=== PATIENT | female | born 1955 | race Two or more races ===

== ENCOUNTER → 2025-08-05 | Emergency (ER) | payer OTHER ==
[~2025-08-05] VITALS: Ht 157.5 cm; Wt 55.3 kg
[~2025-08-05] MED LIST: SYMBICORT 80/10.2 GM IH
[2025-08-05 09:41] LABS: BASO % 0.9 % (0.1-1.2); EOS # 0.23 (0.04-0.54); EOS % 4.4 % (0.7-7.0); LYMPH # 1.69 (1.18-3.74); LYMPH % 32.1 % (19.3-53.1); MEAN PLATELET VOLUME 9.80 fl (9.4-12.4); MONO # 0.33 (0.24-0.82); MONO % 6.3 % (4.7-12.5); NEUT # 2.95 (1.56-6.13); NEUT % 55.9 % (34.0-71.1); RED CELL DISTRIBUTION WIDTH 11.9 % (11.6-14.4)
[2025-08-05 10:22] LABS: URINE APPEARANCE Clear; URINE BILIRRUBIN Negative (NEGATIVE); URINE BLOOD Negative; URINE COLOR Yellow; URINE GLUCOSE Negative (NEGATIVE); URINE KETONE Negative (NEGATIVE); URINE LEUKOCYTE Negative; URINE NITRATE Negative; URINE PROTEIN Negative (NEGATIVE); URINE UROBILINOGEN 0.2 E.U./dl
[2025-08-05 10:25] LABS: ALT/SGPT 72.0 U/L (12-78); AST/SGOT 44.0 U/L (15-37); BILIRUBIN TOTAL 0.36 mg/dL (0.3-1.2); BUN CREA RATIO 31.0 (7.0-25.0); CREATININE SERUM 0.74 mg/dL (0.55-1.02); GFR 77.59; GLOBULINA 3.5 G/DL (2.4-3.5); GLUCOSE FASTING 86.0 mg/dL (65-100); OSMOLALITY SERUM 290.0 MOSM/KG (275-295)
[2025-08-05 10:26] LABS: URINE BACTERIA 11.4 uL (0.0-1933); URINE EPITHELIAL CELLS 3.2 uL (0.0-38.8); URINE RBC 8.7 uL (0.0-20.8); URINE WBC 2.5 uL (0.0-23.2)
[2025-08-05 10:27] LABS: URINE CAST 0.00 uL (0.0-1.40)
== END | disposition home or self-care (01) ==
LOC: ER 08:09
PROVIDERS: General Practice
DX: R42 Dizziness and giddiness (principal); Z88.6 Allergy status to analgesic agent